=== PATIENT | male | born 1960 | race Caucasian/White ===

== ENCOUNTER 2019-07-19 07:43 | Day surgery (SDC) | payer BC ==
[2019-07-17 09:54] VITALS: BMI 28.3
--- NOTE | 2019-07-19 07:30 | OP ---
Operative Note - Note: Operative Date: 07/19/19 Pre-Operative Diagnosis: Right medial meniscus tear Operation: Right partial medial meniscectomy Post-Operative Diagnosis: Same as Pre-op Surgeon: Geremias Fisher Wall Steamer: Quiana Morrison Anesthesia: Fractional Operative Report Dictated: Yes
[2019-07-19] MEDS ORDERED: oxyCODONE HCL 5 MG TABLET PO PRN ×2 (07:45)
[2019-07-19] MEDS ORDERED: LACTATED RINGERS SOLUTION 1,000 ML IV SCH (07:45)
[2019-07-19] MEDS ORDERED: PROPOFOL 20 ML ONE ×2 (08:28)
[2019-07-19] MEDS ORDERED: MIDAZOLAM HCL 2 MG/2 ML SINGLE DOSE VIAL ONE (08:29)
[2019-07-19] MEDS ORDERED: ACETAMINOPHEN INJECTION 100 ML IVPB ONE (09:00)
[2019-07-19] MEDS ORDERED: BUPIVACAINE HCL 0.25% 125 MG/50 ML VIAL ONE (09:06)
[2019-07-19] MEDS ORDERED: DEXAMETHASONE SOD PHOSPHATE 4 MG/1 ML VIAL ONE ×2 (09:11→09:23)
[2019-07-19] MEDS ORDERED: KETOROLAC TROMETHAMINE 30 MG/1 ML VIAL ONE (09:11)
[2019-07-19] MEDS ORDERED: LIDOCAINE HCL/PF 2% SDV 5ML VIAL ONE (09:11)
[2019-07-19] MEDS ORDERED: ONDANSETRON 4 MG/2 ML VIAL ONE ×2 (09:11→09:23)
[2019-07-19] MEDS ORDERED: ceFAZolin SODIUM 1 GM VIAL ONE (09:11)
[2019-07-19 12:02] VITALS: TEMP 98
[2019-07-19 12:16] VITALS: BP 134/88; PULSE 65
--- NOTE | 2019-07-19 17:53 | OP ---
DATE OF OPERATION: 07/19/2019 PREOPERATIVE DIAGNOSIS: Right knee lateral meniscus tear. POSTOPERATIVE DIAGNOSIS: Right knee lateral meniscus tear. PROCEDURE: Right knee arthroscopy with partial lateral meniscectomy. SURGEON: Geremias Coughlin M.D. [employer]RSE PATROLLER: Ernst Mccoy ANESTHESIA: General. POSTOPERATIVE CONDITION: Stable. COMPLICATIONS: None. INDICATION: This is a pleasant gentleman suffering from lateral knee pain. MRI demonstrated lateral meniscal tear. Despite conservative treatment, he has failed to improve and elected for meniscectomy. Surgical risks were reviewed in detail including bleeding, infection, neurovascular injury, need for further surgery, postoperative pain and stiffness, osteoarthritis. We discussed medical risks such as heart attack, stroke, DVT, PE, and . I reviewed the postoperative rehabilitation protocol. I addressed all the patient's questions and concerns. He voiced understanding and elected to proceed. DESCRIPTION OF PROCEDURE: The patient was brought to the operating room where general anesthetic was administered. The right lower extremity was then prepped and draped in the usual sterile fashion. A perioperative dose of antibiotics was given, and the usual timeout procedure was performed. The knee was then marked out. Subcutaneously the portal sites were injected with 0.25% Marcaine. The lateral port was now established using 11 blade. The arthroscope was passed into the knee. Examination of the patellofemoral joint demonstrated some moderate partial thickness chondral loss mostly along the lateral patellar facet. There was along the trochlea. Passing the arthroscope into the notch demonstrated intact ACL and PCL. The arthroscope was now passed into the medial compartment. The medial portal was established under spinal needle localization. The medial compartment demonstrated no significant articular wear. The meniscus was probed and found to be stable and no tears were seen. The arthroscope was now passed to the lateral compartment. Here, a diffuse tear was noted along the inner margins of the lateral meniscus extending from the posterior horn into the mid body. Utilizing meniscal biters as well as a shaver, this was debrided down to a stable base. There was mild articular wear noted. Excess fluid was now withdrawn from the chamber. The portals were sutured using 3-0 nylon. Sterile dressing was placed. The patient was extubated and transferred to recovery room in stable condition. GEREMIAS COUGHLIN M.D. [id number]
== END 2019-07-19 11:30 | disposition home or self-care (01) ==
LOC: FASU 07:43
PROVIDERS: ATTEND Orthopaedic Surgery Sports Medicine
PROC: 0SBC4ZZ Excision of Right Knee Joint, Percutaneous Endoscopic Approach (ICD-10-PCS; principal; 2019-07-19 09:35)
DX: S83.281A Other tear of lateral meniscus, current injury, right knee, initial encounter (principal); X58.XXXA Exposure to other specified factors, initial encounter; Y93.9 Activity, unspecified; Y92.9 Unspecified place or not applicable
CPT/HCPCS: 94760; J0131